=== PATIENT | male | born 1960 | race Caucasian/White ===

== ENCOUNTER 2016-09-20 20:31 | Emergency (ER) | payer BC ==
[~2016-09-20] VITALS: Ht 167.6 cm; Wt 72.1 kg
[~2016-09-20 20:31] MED LIST: PENI500T PO; PERC5TAB12 PO
[2016-09-20 20:56] VITALS: BP 109/78; PULSE 64; RESP 18; TEMP 98; O2SAT 97
== END 2016-09-20 22:13 | disposition left against medical advice (07) ==
LOC: PHED 20:31
DX: M79.642 Pain in left hand (principal)
CPT/HCPCS: 99281